=== PATIENT | female | born 1995 | race Caucasian/White ===

== ENCOUNTER 2023-05-01 16:05 | Inpatient (IN) ==
[2023-05-01 16:58] LABS: ABS Eosinophils 0.1 10^3/uL (0.0-0.5); ABS Lymphocytes 1.9 10^3/uL (1.0-4.8); ABS Monocytes 0.6 10^3/uL (0.0-0.9); ABS Neutrophils 4.4 10^3/uL (1.5-7.6); Hematocrit 35.9 % (35-45); Hemoglobin 12.5 g/dL (11.5-14.3); Lymphocyte % 26.6 %; Mean Corpuscular Hgb Conc 34.9 g/dL (31-36); Mean Corpuscular Volume 85.9 fL (80-97); Mean Platelet Volume 7.4 fL (7.5-11.2); Platelet Count 399 10^3/uL (150-450); Red Blood Count 4.18 10^6/uL (3.63-4.92); Red Cell Distribution Width 12.7 % (12-17)
[2023-05-01 17:00] LABS: Urine Appearance Cloudy; Urine Bilirubin Negative (Negative); Urine Blood Negative (Negative); Urine Color Straw; Urine Glucose Negative (Negative); Urine Ketones Negative (Negative); Urine Nitrite Negative (Negative); Urine Protein Negative (Negative); Urine Specific Gravity 1.004 (1.002-1.030); Urine Urobilinogen Negative (Negative)
[2023-05-01 17:02] LABS: Urine Bacteria Absent (Absent); Urine Red Blood Cell Absent (Absent); Urine Squamous Epithelial Cell Present (Absent); Urine White Blood Cell 2+(11-20/hpf) (Absent)
[2023-05-01 17:11] LABS: Anion Gap 5 mmol/L (2-16); CO2 Carbon Dioxide 29 mmol/L (22-32); Calcium 9.3 mg/dL (8.6-10.3); Chloride 104 mmol/L (101-111); Potassium 4.3 mmol/L (3.5-5.0); Sodium 138 mmol/L (135-145)
[2023-05-01 17:17] LABS: ALT 16 U/L (7-52); AST 14 U/L (13-39); Albumin/Globulin Ratio 1.3 (1-3); Alkaline Phosphatase 60 U/L (35-149); Blood Urea Nitrogen 11 mg/dL (6-24); Creatinine, Serum 0.58 mg/dL (0.51-0.95); Globulin 3.1 g/dL (2-4); Glucose 96 mg/dL (70-100); Total Protein 7.1 g/dL (6.4-8.9); eGFR CKD-EPI 128.7 (>60)
[2023-05-01 17:26] LABS: Urine Benzodiazepine Screen None Detected (None Detect); Urine Cannabinoids Screen None Detected (None Detect); Urine Opiates Screen None Detected (None Detect)
[2023-05-01 17:33] LABS: Alcohol, S < 13 mg/dL (<13); Salicylate < 2.50 mg/dL (<30)
[2023-05-01 17:34] LABS: Acetaminophen < 15 mcg/mL
[2023-05-01 17:45] LABS: TSH Ultra Thyroid Stim Horm 1.28 mcIU/mL (0.34-5.60)
[2023-05-01] MEDS ORDERED: Al Hydrox/Mg Hydrox/Simet LIQ 30 ML UDC PO PRN (18:25)
[2023-05-02 08:40] LABS: Cholesterol 209 mg/dL; HDL Cholesterol 75.2 mg/dL; LDL Cholesterol 99 mg/dL; Triglycerides 172 mg/dL
[2023-05-02] MEDS: Vitamin THERAPEUTIC TAB PO SCH (09:06)
[2023-05-02 15:07] LABS: HCG Pregnancy < 0.60 mIU/mL
[2023-05-02] MEDS: NORGESTIMATE ETHINYL ESTRADIOL PO SCH (17:15)
[2023-05-03] MEDS: NORGESTIMATE ETHINYL ESTRADIOL PO SCH (10:50)
[2023-05-03] MEDS: Vitamin THERAPEUTIC TAB PO SCH (10:50)
[2023-05-03] MEDS: Venlafaxine XR 75 mg PO SCH (11:45)
[2023-05-04] MEDS: Vitamin THERAPEUTIC TAB PO SCH (07:50)
[2023-05-04] MEDS: NORGESTIMATE ETHINYL ESTRADIOL PO SCH (07:50)
[2023-05-04] MEDS: Venlafaxine XR 75 mg PO SCH (07:50)
[2023-05-04 10:23] VITALS: BP 118/67
[2023-05-05] MEDS: Venlafaxine XR 75 mg PO SCH (08:10)
[2023-05-05] MEDS: NORGESTIMATE ETHINYL ESTRADIOL PO SCH (08:10)
[2023-05-05] MEDS: Vitamin THERAPEUTIC TAB PO SCH (08:10)
== END 2023-05-05 12:42 | disposition home or self-care (01) | DRG 754 ==
LOC: ED 16:05 → EDHOLD 17:51 → BSU 19:45
PROVIDERS: ADMIT Psychiatry & Neurology Psychiatry; ATTEND Psychiatry & Neurology Psychiatry

== ENCOUNTER 2023-08-02 18:00 | Inpatient (IN) ==
[2023-08-02 19:47] LABS: ABS Lymphocytes 1.5 10^3/uL (1.0-4.8); ABS Monocytes 0.5 10^3/uL (0.0-0.9); ABS Neutrophils 4.5 10^3/uL (1.5-7.6); Eosinophil % 0.6 %; Hematocrit 36.6 % (35-45); Hemoglobin 12.4 g/dL (11.5-14.3); Lymphocyte % 23.1 %; Mean Corpuscular Hemoglobin 28.7 pg (27-33); Mean Corpuscular Hgb Conc 33.8 g/dL (31-36); Mean Corpuscular Volume 84.8 fL (80-97); Mean Platelet Volume 7.7 fL (7.5-11.2); Platelet Count 327 10^3/uL (150-450); Red Blood Count 4.32 10^6/uL (3.63-4.92); Red Cell Distribution Width 14.9 % (12-17); White Blood Count 6.5 10^3/uL (3.8-11.8)
[2023-08-02 19:51] LABS: Urine Appearance Cloudy; Urine Bilirubin Negative (Negative); Urine Blood Negative (Negative); Urine Color Yellow; Urine Glucose Negative (Negative); Urine Ketones Negative (Negative); Urine Nitrite Negative (Negative); Urine Protein Negative (Negative); Urine Specific Gravity 1.012 (1.002-1.030); Urine Urobilinogen Negative (Negative)
[2023-08-02 20:03] LABS: Urine Bacteria 1+ (Absent); Urine Red Blood Cell 1+(3-5/hpf) (Absent); Urine Squamous Epithelial Cell Present (Absent); Urine White Blood Cell 1+(6-10/hpf) (Absent)
[2023-08-02 20:08] LABS: ALT 18 U/L (7-52); AST 18 U/L (13-39); Albumin 4.1 g/dL (3.2-5.2); Albumin/Globulin Ratio 1.5 (1-3); Alkaline Phosphatase 53 U/L (35-149); Anion Gap 5 mmol/L (2-16); Blood Urea Nitrogen 10 mg/dL (6-24); CO2 Carbon Dioxide 26 mmol/L (22-32); Calcium 9.2 mg/dL (8.6-10.3); Chloride 105 mmol/L (101-111); Creatinine, Serum 0.61 mg/dL (0.51-0.95); Globulin 2.7 g/dL (2-4); Glucose 99 mg/dL (70-100); Potassium 3.9 mmol/L (3.5-5.0); Sodium 136 mmol/L (135-145); Total Bilirubin 0.4 mg/dL (0.2-1.0); Total Protein 6.8 g/dL (6.4-8.9); eGFR CKD-EPI 127.2 (>60)
[2023-08-02 20:14] LABS: HCG Pregnancy 0.69 mIU/mL
[2023-08-02 20:18] LABS: Urine Benzodiazepine Screen None Detected (None Detect); Urine Cannabinoids Screen None Detected (None Detect); Urine Opiates Screen None Detected (None Detect)
[2023-08-02 20:30] LABS: TSH Ultra Thyroid Stim Horm 1.47 mcIU/mL (0.34-5.60)
[2023-08-02 20:52] LABS: Acetaminophen 0 mcg/mL; Alcohol, S < 13 mg/dL (<13); Salicylate < 2.50 mg/dL (<30)
[2023-08-02] MEDS ORDERED: Al Hydrox/Mg Hydrox/Simet LIQ 30 ML UDC PO PRN (21:51)
[2023-08-03 08:20] LABS: HDL Cholesterol 63.8 mg/dL
[2023-08-03] MEDS: Vitamin THERAPEUTIC TAB PO SCH (08:54)
[2023-08-03] MEDS ORDERED: Venlafaxine XR 75 mg PO SCH (09:00)
[2023-08-03] MEDS: NORGESTIMATE PO SCH (09:51)
[2023-08-03] MEDS: ETHINYL ESTRADIOL PO SCH (09:51)
[2023-08-03] MEDS ORDERED: Venlafaxine XR 75 mg PO ONE (11:20)
[2023-08-04 07:53] VITALS: BP 119/67
[2023-08-04] MEDS ORDERED: Venlafaxine XR 75 mg PO SCH (09:00)
[2023-08-04] MEDS: ETHINYL ESTRADIOL PO SCH (09:08)
[2023-08-04] MEDS: NORGESTIMATE PO SCH (09:08)
[2023-08-04] MEDS: Vitamin THERAPEUTIC TAB PO SCH (09:09)
== END 2023-08-04 12:10 | disposition home or self-care (01) | DRG 754 ==
LOC: ED 18:00 → BSU 21:21 → EDHOLD 21:37 → BSU 21:40
PROVIDERS: ADMIT Psychiatry & Neurology Psychiatry; ATTEND Psychiatry & Neurology Psychiatry

== ENCOUNTER 2023-09-04 22:16 | Inpatient (IN) ==
[2023-09-04 23:26] LABS: ABS Eosinophils 0.1 10^3/uL (0.0-0.5); ABS Lymphocytes 2.1 10^3/uL (1.0-4.8); ABS Monocytes 0.5 10^3/uL (0.0-0.9); ABS Neutrophils 3.5 10^3/uL (1.5-7.6); ABS Nucleated RBC 0.01 10^3/ul; Eosinophil % 1.2 %; Hematocrit 38.4 % (35-45); Hemoglobin 13.3 g/dL (11.5-14.3); Lymphocyte % 33.6 %; Mean Corpuscular Hemoglobin 29.2 pg (27-33); Mean Corpuscular Hgb Conc 34.7 g/dL (31-36); Mean Corpuscular Volume 84.3 fL (80-97); Mean Platelet Volume 7.7 fL (7.5-11.2); Nucleated Red Blood Cells % 0.1 %/100WBC (0.0-0.8); Platelet Count 344 10^3/uL (150-450); Red Blood Count 4.56 10^6/uL (3.63-4.92); Red Cell Distribution Width 14.9 % (12-17); White Blood Count 6.2 10^3/uL (3.8-11.8)
[2023-09-04 23:29] LABS: Urine Appearance Cloudy; Urine Bilirubin Negative (Negative); Urine Blood Negative (Negative); Urine Color Yellow; Urine Glucose Negative (Negative); Urine Ketones Negative (Negative); Urine Nitrite Negative (Negative); Urine Protein Negative (Negative); Urine Specific Gravity 1.023 (1.002-1.030); Urine Urobilinogen Positive (Negative)
[2023-09-04 23:45] LABS: ALT 13 U/L (7-52); AST 16 U/L (13-39); Albumin 4.2 g/dL (3.2-5.2); Albumin/Globulin Ratio 1.4 (1-3); Alkaline Phosphatase 62 U/L (35-149); Anion Gap 7 mmol/L (2-16); Blood Urea Nitrogen 9 mg/dL (6-24); CO2 Carbon Dioxide 23 mmol/L (22-32); Calcium 9.4 mg/dL (8.6-10.3); Chloride 106 mmol/L (101-111); Creatinine, Serum 0.62 mg/dL (0.51-0.95); Glucose 110 mg/dL (70-100); Potassium 3.5 mmol/L (3.5-5.0); Sodium 136 mmol/L (135-145); Total Bilirubin 0.3 mg/dL (0.2-1.0); Total Protein 7.2 g/dL (6.4-8.9); eGFR CKD-EPI 126.7 (>60)
[2023-09-04 23:46] LABS: Urine Benzodiazepine Screen None Detected (None Detect); Urine Cannabinoids Screen None Detected (None Detect); Urine Opiates Screen None Detected (None Detect)
[2023-09-04 23:52] LABS: HCG Pregnancy < 0.60 mIU/mL
[2023-09-05 00:23] LABS: Acetaminophen < 15 mcg/mL; Alcohol, S < 13 mg/dL (<13); Salicylate < 2.50 mg/dL (<30)
[2023-09-05 00:40] LABS: TSH Ultra Thyroid Stim Horm 1.03 mcIU/mL (0.34-5.60)
[2023-09-05] MEDS ORDERED: Al Hydrox/Mg Hydrox/Simet LIQ 30 ML UDC PO PRN (16:44)
[2023-09-06] MEDS: Vitamin THERAPEUTIC TAB PO SCH (08:48)
[2023-09-08] MEDS: Venlafaxine XR 75 mg PO SCH (09:18)
[2023-09-10 21:21] VITALS: BP 122/78
== END 2023-09-11 15:37 | disposition home or self-care (01) | DRG 751 ==
LOC: ED 22:16 → EDHOLD 09-05 16:44 → BSU 09-05 16:58
PROVIDERS: ADMIT Psychiatry & Neurology Psychiatry; ATTEND Psychiatry & Neurology Psychiatry